=== PATIENT | male | born 2000 | race Two or more races ===

== ENCOUNTER 2024-01-28 21:29 | Emergency (ER) | payer MEDICAID, OTHER ==
[~2024-01-28] VITALS: Ht 165.1 cm; Wt 66.5 kg
[2024-01-28 22:48] LABS: Urine Bacteria NONE SEEN /hpf (None Seen); Urine Blood Negative /uL (Negative); Urine Clarity Clear (Clear); Urine Protein, UAD Negative (Negative); Urine Specific Gravity 1.001 (1.001-1.035); Urine Urobilinogen Normal (Negative); Urine WBC <1 /hpf (0 - 3)
[2024-01-28 22:57] LABS: Urine Color STRAW (Yellow)
[2024-01-28] MEDS: ONDANSETRON ODT 4 MG TAB PO ONE (23:15)
[2024-01-28] MEDS: DICYCLOMINE HCL 10 MG CAP PO ONE (23:15)
[2024-01-28 23:45] VITALS: BP 120/84; TEMP 98.4; O2SAT 100
[2024-01-28 23:55] VITALS: PULSE 84; RESP 17
[2024-01-28] MEDS ORDERED: DICY10CA PO (23:59)
[2024-01-28] MEDS ORDERED: ZOFR4T PO (23:59)
== END 2024-01-29 00:08 | disposition home or self-care (01) ==
LOC: ER 21:29
DX: A08.4 Viral intestinal infection, unspecified (principal); Z79.899 Other long term (current) drug therapy
CPT/HCPCS: 74018; 81001; 82962; Q0162